=== PATIENT | male | born 1995 | race Caucasian/White ===

== ENCOUNTER 2017-05-09 17:17 | Emergency (ER) | payer SELFPAY ==
[~2017-05-09] VITALS: Ht 160 cm; Wt 54.0 kg
[~2017-05-09 17:17] MED LIST: AMPH1TAB33 PO; CEPH500C3 PO; CLON-352 PO
[2017-05-09 17:26] VITALS: BP 136/76; PULSE 80; RESP 15; TEMP 98.5; O2SAT 99
[2017-05-09] MEDS ORDERED: SILV1CRE20 TOPICAL (17:40)
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
[2017-05-09] MEDS ORDERED: SILVER SULFADIAZINE 1% CR 50 GM JAR TOPICAL ONE (17:45)
== END 2017-05-09 18:10 | disposition home or self-care (01) ==
LOC: PHED 17:17
DX: T22.212A Burn of second degree of left forearm, initial encounter (principal); T31.0 Burns involving less than 10% of body surface; Z86.59 Personal history of other mental and behavioral disorders; X10.2XXA Contact with fats and cooking oils, initial encounter
CPT/HCPCS: 99283